=== PATIENT | female | born 1985 | race Hispanic/Latino ===

== ENCOUNTER 2023-12-18 00:59 | Inpatient (IN) | payer BC, OTHER ==
[2023-12-18 01:07] VITALS: BMI 25.3
[2023-12-18] MEDS ORDERED: hydrALAZINE 20 MG/ML VIAL SLOW IVP PRN (01:19)
[2023-12-18] MEDS: Terbutaline Sulfate 1 MG/ML VIAL SC SCH (02:24)
[2023-12-18 02:28] LABS: FFN Internal QC Analyzer PASS (PASS); FFN Internal QC Cassette PASS (PASS); Fetal Fibronectin Negative (Negative)
[2023-12-18] MEDS: Dextrose 5%-Lactated Ringers 1,000 ML IV SCH ×2 (02:33→08:58)
[2023-12-18] MEDS: Potassium Chloride 20 MEQ TAB PO SCH (02:33)
[2023-12-18 04:56] LABS: Critical Call Chem-Lactate NUR.TD4@0456; Lactic Acid 4.1 mmol/L (0.5-2.2)
[2023-12-18 04:58] LABS: ALT (SGPT) 8 U/L (8-55); AST (SGOT) 15 U/L (5-34); Alkaline Phosphatase 90 U/L (40-110); Anion Gap 12 mmol/L (10-20); BUN (Urea Nitrogen) 6 mg/dL (7.0-18.7); Bilirubin, Total 0.3 mg/dL (0.2-1.2); Calc. Creatinine Clearance 111 mL/min (70-130); Carbon Dioxide 16 mmol/L (22-29); Chloride 112 mmol/L (98-107); Estimated GFR 115; Globulin 3.4 g/dL (2.4-3.5); Glucose 187 mg/dL (70-105); Potassium 3.3 mmol/L (3.5-5.1); Protein, Total 5.4 g/dL (6.0-8.3); Sodium 137 mmol/L (136-145)
[2023-12-18] MEDS ORDERED: Promethazine HCl 25 MG/ML VIAL IM PRN (05:11)
[2023-12-18] MEDS ORDERED: Ondansetron PF 4 MG/2 ML Vial IVP PRN (05:11)
[2023-12-18] MEDS ORDERED: Acetaminophen 500 MG TAB PO PRN (05:11)
[2023-12-18] MEDS ORDERED: fentaNYL 50 mcg/mL 1 mL Vial SLOW IVP PRN (05:11)
[2023-12-18] MEDS ORDERED: Oxytocin 30 units/NS 500 ML 500 ML IV SCH (05:15)
[2023-12-18 05:26] LABS: Hematocrit 22.1 % (34.9-44.5); Hemoglobin 6.8 g/dL (12.0-15.5); MDiff Complete? YES; Mean Corpuscular HGB CONC 30.8 g/dL (32.0-36.0); Mean Corpuscular Hemoglobin 18.8 pg (27.0-33.0); Mean Corpuscular Volume 61.2 fL (81.6-98.3); Mean Platelet Volume 9.2 fL (7.4-10.4); Platelet Count 299 10x3/uL (150-450); RBC Distribution Width 19.3 % (11.5-14.5); Red Blood Cell (RBC) Count 3.61 10x6/uL (3.90-5.03); White Blood Cell (WBC) Count 13.4 10x3/uL (3.5-10.5)
[2023-12-18] MEDS: diphenhydrAMINE 25 MG CAP PO SCH ×2 (05:26→12:26)
[2023-12-18 05:27] LABS: Anisocytosis MODERATE=16-30 cells (100X) (0-5/hpf); Elliptocytes SLIGHT = 2-5 cells (100X) (0-1/hpf); Microcytosis MODERATE=15-30 cells (100X) (0-5/hpf); Platelet Adequacy Comment Platelets Normal
[2023-12-18 05:30] LABS: Lymphocytes 10 % (21-51); Monocytes 2 % (0-10); Neutrophil 88 % (42-75)
[2023-12-18 05:32] LABS: Hypochromia MODERATE=16-30 cells (100X) (0-5/hpf)
[2023-12-18 05:35] LABS: Reflex for Review?? YES
[2023-12-18] MEDS: Indomethacin 25 mg Capsule PO SCH ×2 (08:56→13:38)
[2023-12-18 12:19] LABS: Lactic Acid 3.1 mmol/L (0.5-2.2)
[2023-12-18] MEDS: Betamet Acet/Betamet Na Ph 30 MG/5 ML VIAL ONE (15:20)
[2023-12-18] MEDS: AMPicillin 1 GM in Sodium Chloride 0.9% 100 ML IVPB SCH (15:30)
[2023-12-18] MEDS: NIFEdipine 10 MG CAP ONE (15:50)
[2023-12-18] MEDS: NIFEdipine 10 MG CAP PO SCH (15:51)
[2023-12-18] MEDS: Azithromycin 500 MG in Sodium Chloride 0.9% 250 ML 250 ML IVPB SCH (16:42)
[2023-12-18] MEDS: Sodium Chloride 0.9% 100 ML ONE (16:45)
[2023-12-19 15:06] LABS: #Basophils 0.01 10x3/uL (0.0-0.2); #Monocytes 0.44 10x3/uL (0.0-1.1); #Neutrophils 12.42 10x3/uL (1.5-8.4); %Basophils 0.1 % (0.0-2.0); %Lymphocytes 10.9 % (18.0-47.0); %Neutrophils 84.2 % (40.0-75.0); Critical Call w/ Read Back NUR.SAB AT 1425 Read back results; Hematocrit 18.9 % (34.9-44.5); Hemoglobin 5.6 g/dL (12.0-15.5); Mean Corpuscular HGB CONC 29.6 g/dL (32.0-36.0); Mean Corpuscular Hemoglobin 18.3 pg (27.0-33.0); Mean Corpuscular Volume 61.8 fL (81.6-98.3); Mean Platelet Volume 9.8 fL (7.4-10.4); Platelet Count 253 10x3/uL (150-450); RBC Distribution Width 19.5 % (11.5-14.5); Red Blood Cell (RBC) Count 3.06 10x6/uL (3.90-5.03); White Blood Cell (WBC) Count 14.8 10x3/uL (3.5-10.5)
[2023-12-19 15:12] LABS: ALT (SGPT) 10 U/L (8-55); AST (SGOT) 30 U/L (5-34); Albumin 2.1 g/dL (3.5-5.0); Alkaline Phosphatase 84 U/L (40-110); Anion Gap 13 mmol/L (10-20); BUN (Urea Nitrogen) 8 mg/dL (7.0-18.7); Bilirubin, Total 0.3 mg/dL (0.2-1.2); Calc. Creatinine Clearance 122 mL/min (70-130); Calcium 8.5 mg/dL (7.8-10.44); Carbon Dioxide 14 mmol/L (22-29); Chloride 112 mmol/L (98-107); Estimated GFR 118; Globulin 3.2 g/dL (2.4-3.5); Glucose 136 mg/dL (70-105); Lactic Acid 2.8 mmol/L (0.5-2.2); Potassium 4.2 mmol/L (3.5-5.1); Protein, Total 5.3 g/dL (6.0-8.3); Sodium 135 mmol/L (136-145)
[2023-12-19] MEDS: Betamet Acet/Betamet Na Ph 30 MG/5 ML VIAL IM SCH (15:31)
[2023-12-19] MEDS: Lidocaine 1% (PF) 30 ML VIAL ONE (17:40)
[2023-12-20 08:58] LABS: Hematocrit 24.3 % (34.9-44.5); Hemoglobin 7.6 g/dL (12.0-15.5); Platelet Count 228 10x3/uL (150-450)
[2023-12-20 09:10] LABS: Lactic Acid 1.9 mmol/L (0.5-2.2)
[2023-12-21] MEDS: AMOXicillin 250 MG CAP PO SCH (21:14)
[2023-12-21] MEDS: Milk Of Magnesia 30 ML UDCUP PO SCH (21:14)
[2023-12-22] MEDS: Lactated Ringer's 1,000 ML IV SCH (02:17)
[2023-12-23] MEDS: Terbutaline Sulfate 1 MG/ML VIAL SC SCH (19:39)
[2023-12-23] MEDS: Terbutaline Sulfate 1 MG/ML VIAL ONE (19:39)
[2023-12-25 08:11] VITALS: BMI 25.3
[2023-12-30] MEDS: Ferrous Sulfate 325 MG TAB PO SCH (08:22)
[2023-12-30] MEDS: Prenatal Vitamin 1 TAB PO SCH (08:22)
[2023-12-31 04:33] LABS: Hematocrit 33.6 % (34.9-44.5); Mean Corpuscular HGB CONC 32.7 g/dL (32.0-36.0); Mean Corpuscular Volume 73.2 fL (81.6-98.3); Mean Platelet Volume 9.8 fL (7.4-10.4); Platelet Count 235 10x3/uL (150-450); RBC Distribution Width 32.2 % (11.5-14.5); Red Blood Cell (RBC) Count 4.59 10x6/uL (3.90-5.03); White Blood Cell (WBC) Count 8.6 10x3/uL (3.5-10.5)
[2024-01-06] MEDS: Betamet Acet/Betamet Na Ph 30 MG/5 ML VIAL IM SCH (13:03)
[2024-01-06] MEDS ORDERED: Famotidine/PF 20 mg/2ml Vial SLOW IVP PRN (19:29)
[2024-01-06] MEDS ORDERED: Bicitra 30 ML UDCUP PO PRN (19:29)
[2024-01-06 20:30] LABS: Hematocrit 36.9 % (34.9-44.5); Mean Corpuscular HGB CONC 32.5 g/dL (32.0-36.0); Mean Corpuscular Hemoglobin 24.3 pg (27.0-33.0); Mean Corpuscular Volume 74.8 fL (81.6-98.3); Mean Platelet Volume 9.8 fL (7.4-10.4); Platelet Count 325 10x3/uL (150-450); Red Blood Cell (RBC) Count 4.93 10x6/uL (3.90-5.03); White Blood Cell (WBC) Count 10.8 10x3/uL (3.5-10.5)
[2024-01-07] MEDS: CEFAZOLIN 2 GM in Sodium Chloride 0.9% 100 ML IVPB SCH (07:02)
[2024-01-07] MEDS ORDERED: Meperidine HCl/PF 25 MG (1 mL) VIAL SLOW IVP PRN (08:46)
[2024-01-07] MEDS ORDERED: Naloxone HCl 0.4 mg/ml Vial IVP PRN ×2 (08:46)
[2024-01-07] MEDS ORDERED: Moisturizing Cream (Eucerin) 113 GM JAR TOP PRN (08:46)
[2024-01-07] MEDS ORDERED: Naloxone HCl 0.4 mg/ml Vial IV PRN (08:46)
[2024-01-07] MEDS ORDERED: diphenhydrAMINE 50 MG/ML VIAL IVP PRN (08:46)
[2024-01-07] MEDS ORDERED: Ketorolac Tromethamine 30 MG (1 mL) VIAL IVP PRN (08:46)
[2024-01-07] MEDS ORDERED: HYDROmorphone 0.5 MG/0.5 ML SYRINGE SLOW IVP PRN (08:46)
[2024-01-07] MEDS ORDERED: Ondansetron PF 4 MG/2 ML Vial IVP PRN ×2 (08:46)
[2024-01-07] MEDS ORDERED: Communication Order-Pharmacy FS SCH (09:00)
[2024-01-07] MEDS ORDERED: Ketorolac Tromethamine 30 MG (1 mL) VIAL IVP SCH (09:00)
[2024-01-07] MEDS: Promethazine HCl 25 MG/ML VIAL IM PRN (09:40)
[2024-01-07] MEDS: Tranexamic Acid 1,000 MG/10 ML VIAL ONE (09:51)
[2024-01-07] MEDS: Betamet Acet/Betamet Na Ph 30 MG/5 ML VIAL ONE (09:51)
[2024-01-07] MEDS: ePHEDrine Sulfate 50 MG/10 ML VIAL ONE (09:51)
[2024-01-07] MEDS: fentaNYL 50 mcg/mL 1 mL Vial ONE (09:51)
[2024-01-07] MEDS: Carboprost 250 MCG/ML AMP ONE (09:51)
[2024-01-07] MEDS: Morphine PF 10 MG/10 ML VIAL ONE (09:51)
[2024-01-07] MEDS: Methylergonovine 0.2 MG/ML VIAL ONE (09:51)
[2024-01-07] MEDS: Phenylephrine 40 MG/NS 250 ML 250 ML ONE (09:52)
[2024-01-07] MEDS: Ondansetron PF 4 MG/2 ML Vial ONE (09:52)
[2024-01-07] MEDS: Oxytocin 10 UNITS/ML VIAL ONE ×2 (09:52)
[2024-01-07] MEDS: Ketorolac Tromethamine 30 MG (1 mL) VIAL ONE (09:52)
[2024-01-07] MEDS: fentaNYL 50 mcg/mL 1 mL Vial SLOW IVP PRN (10:20)
[2024-01-07] MEDS ORDERED: Meperidine HCl/PF 25 MG (1 mL) VIAL IM PRN (10:51)
[2024-01-07] MEDS ORDERED: Bisacodyl 10 MG SUPP PR PRN (10:51)
[2024-01-07] MEDS ORDERED: diphenhydrAMINE 25 MG CAP PO PRN (10:51)
[2024-01-07] MEDS ORDERED: Lanolin Ointment 7 GM TUBE TOP PRN (10:51)
[2024-01-07] MEDS ORDERED: Promethazine HCl 25 MG/ML VIAL IM PRN (10:51)
[2024-01-07] MEDS ORDERED: hydrALAZINE 20 MG/ML VIAL SLOW IVP PRN (10:51)
[2024-01-07] MEDS: Docusate 100 MG CAP PO SCH ×2 (12:11→20:17)
[2024-01-07] MEDS: Boostrix 0.5 ML (Tdap) VIAL (>/=7 yrs of age) IM ONE (12:11)
[2024-01-07] MEDS: Prenatal Vitamin 1 TAB PO SCH (12:11)
[2024-01-07] MEDS: Ferrous Sulfate 325 MG TAB PO SCH ×2 (12:11→20:08)
[2024-01-07] MEDS: Ondansetron PF 4 MG/2 ML Vial IVP PRN (14:09)
[2024-01-07] MEDS: Ketorolac Tromethamine 30 MG (1 mL) VIAL IVP SCH (14:09)
[2024-01-08 03:29] LABS: Hemoglobin 8.3 g/dL (12.0-15.5); Mean Corpuscular HGB CONC 31.9 g/dL (32.0-36.0); Mean Corpuscular Hemoglobin 24.4 pg (27.0-33.0); Mean Corpuscular Volume 76.5 fL (81.6-98.3); Mean Platelet Volume 9.4 fL (7.4-10.4); Platelet Count 233 10x3/uL (150-450); White Blood Cell (WBC) Count 12.7 10x3/uL (3.5-10.5)
[2024-01-08] MEDS: Simethicone Chewable 80 MG TAB PO PRN (06:06)
[2024-01-08] MEDS: HYDROcodone/Acetaminophen 5/325 mg Tablet PO PRN (06:06)
[2024-01-08] MEDS: Prenatal Vitamin 1 TAB PO SCH (09:27)
[2024-01-08] MEDS: Ibuprofen 800 MG TAB PO SCH (14:31)
[2024-01-09] MEDS: HYDROcodone/Acetaminophen 5/325 mg Tablet PO PRN (02:09)
[2024-01-09 20:38] VITALS: TEMP 98.4
[2024-01-10 07:21] VITALS: BP 131/70
[2024-01-10] MEDS: Ondansetron ODT 4 MG TAB PO PRN (15:21)
== END 2024-01-10 18:30 | disposition home or self-care (01) | DRG 787 ==
LOC: CSHLD/OP 00:59 → CSHLD 10:26 → CSHPP 01-07 10:40
PROVIDERS: ADMIT Family Medicine; ATTEND Family Medicine
PROC: 10D00Z1 Extraction of Products of Conception, Low, Open Approach (ICD-10-PCS; principal; 2024-01-07)
DX: O99.892 Other specified diseases and conditions complicating childbirth (principal); E87.20 Acidosis, unspecified; T45.4X5A Adverse effect of iron and its compounds, initial encounter; O36.5930 Maternal care for other known or suspected poor fetal growth, third trimester, not applicable or unspecified; Z37.0 Single live birth; Z3A.34 34 weeks gestation of pregnancy; O99.283 Endocrine, nutritional and metabolic diseases complicating pregnancy, third trimester; E86.0 Dehydration; E87.6 Hypokalemia; O76 Abnormality in fetal heart rate and rhythm complicating labor and delivery
CPT/HCPCS: 36415; 36430; 51702; 76815; 76819; 80053; 82731; 83605; 85014; 85018; 85025; 85027; 85049; 85060; 86850; 86900; 86901; 88307; 99285; C1889; J0290; J0456; J0702; J1885; J2274; J2405; J2550; J2590; J3010; J3105; J3490; J7050; J7120; P9016; Q0162